=== PATIENT | female | born 1940 | race African-American/Black ===

== ENCOUNTER 2020-12-29 10:57 | Emergency (ER) | payer OTHER ==
[~2020-12-29] VITALS: Ht 162.6 cm; Wt 66.2 kg
[2020-12-29 11:24] LABS: URINE BILIRUBIN NEGATIVE (Negative); URINE BLOOD NEGATIVE (Negative); URINE CLARITY CLEAR; URINE COLOR YELLOW; URINE GLUCOSE-RANDOM* NEGATIVE (Negative); URINE KETONES NEGATIVE (Negative); URINE NITRITE-REFLEX NEGATIVE (Negative); URINE PROTEIN (DIPSTICK) NEGATIVE (Negative); URINE SPECIFIC GRAVITY <= 1.005 (1.005-1.035); URINE UROBILINOGEN 0.2 E.U./dl (0.2-1.0)
[2020-12-29 11:25] LABS: URINE LEUKOCYTES-REFLEX 1+ (Negative)
[2020-12-29 12:38] LABS: CALCIUM 9.9 mg/dL (8.5-10.1); POTASSIUM 4.7 mmol/L (3.5-5.1)
[2020-12-29 12:41] LABS: ABSOLUTE NEUTROPHILS 4.9 thou/uL (1.4-8.2); BASOPHILS 1.4 % (0.0-2.0); EOSINOPHILS 2.4 % (0.0-3.0); HEMATOCRIT 36.3 % (37.0-47.0); HEMOGLOBIN 11.6 gm/dL (12.0-15.0); LYMPHOCYTES 19.3 % (24.0-44.0); MCV 84.4 fL (80.0-100.0); MONOCYTES 8.4 % (1.0-8.0); PLATELET COUNT 390 thou/uL (150-400); POLYS 68.5 % (36.0-66.0); RBC 4.31 mil/uL (4.20-5.00); RDW 16.7 % (10.5-14.5); WBC 7.1 thou/uL (4.0-11.0)
[2020-12-29 12:45] LABS: ALBUMIN 3.2 g/dL (3.4-5.0); TOTAL BILIRUBIN 0.1 mg/dL (0.2-1.0)
[2020-12-29 13:21] LABS: SQUAMOUS >10 Many /LPF (0-3)
[2020-12-29 13:22] LABS: URINE WBC-REFLEX 0-5 Rare /HPF (0-5)
[2020-12-29 13:23] LABS: URINE RBC 1-2 Rare /HPF (NONE SEEN)
[2020-12-29 13:37] LABS: CASTS None Seen /LPF (None Seen); CRYSTALS None Seen /LPF (None Seen)
[2020-12-29] MEDS ORDERED: MOBIC7.5 MG PO (13:59)
[2020-12-29] MEDS ORDERED: CYCLOBENZAPRINE5 MG PO (13:59)
[2020-12-29] MEDS ORDERED: ARTHRITIS PAIN100 GM TOP (13:59)
[2020-12-29] MEDS ORDERED: CEPHALEXIN500 MG PO (14:01)
[2020-12-29 14:10] VITALS: BP 118/64
--- NOTE | 2020-12-29 14:21 | EKG ---
[place] [address] [facility] [place] [address] ELECTROCARDIOGRAM REPORT Name: GEMJAYNE MIHAELA Room #: DEP [facility] CAMPUSBakari#: [id number] Admission: 12/29/20 Attend Phys: Discharge: 12/29/20 Date of : 44 Report #: [id number] [facility] ED Test Date: 2020-12-29 Test Time: 11:50:24 Pat Name: JAYNE RABAGO Department: Room: Gender: F Prepress Technician: : 1940 Requested By: Pilar Robin Order Number: [id number] MD: Harris Sloan Measurements Intervals [place] Rate: 67 P: 71 KS: 164 QRS: -35 QRSD: 90 T: 29 QT: 408 QTc: 431 Interpretive Statements Sinus rhythm Left axis deviation Low voltage, precordial leads Compared to ECG 11/04/2008 08:15:20 Low QRS voltage now present Sinus arrhythmia no longer present Poor R-wave progression no longer present Electronically Signed On 12-29-2020 14:20:54 CDT by Harris Sloan [email or web address] <ELECTRONICALLY SIGNED> By: Harris Sloan MD, [facility] 12/29/20 1420 1150 1150 Harris Sloan MD, [facility] /EPI
== END 2020-12-29 14:10 | disposition home or self-care (01) ==
LOC: ER 10:57
PROVIDERS: Physician Assistant
DX: N39.0 Urinary tract infection, site not specified (principal); M54.50 Low back pain, unspecified; E11.9 Type 2 diabetes mellitus without complications; I10 Essential (primary) hypertension; Z90.49 Acquired absence of other specified parts of digestive tract; Z87.442 Personal history of urinary calculi; Z90.710 Acquired absence of both cervix and uterus; Z98.890 Other specified postprocedural states; Z88.8 Allergy status to other drugs, medicaments and biological substances; Z88.6 Allergy status to analgesic agent; Z91.040 Latex allergy status